=== PATIENT | female | born 1980 | race Caucasian/White ===

== ENCOUNTER 2016-08-04 21:30 | Emergency (ER) | payer OTHER ==
[~2016-08-04 21:30] MED LIST: ATIVAN PO; B-12 PO; CELEXA20 MG PO; FLEXERIL PO; FLEXERIL10 MG PO; IBUPROFEN PO; IBUPROFEN800 MG PO; MOTRIN600 M2 PO; NO MEDICATIONS; ORTHO TRI-7 DAYS X PO; TYLENOL #3 PO
[2016-08-05 00:59] LABS: BASOPHIL% 0.4 % (0-2.5); EOSINOPHIL# 0.1 X10e3 (0-0.7); EOSINOPHIL% 1.1 % (0.0-7.0); HEMOGLOBIN 12.5 gm/dL (12.0-16.0); LYMPHOCYTE# 2.2 X10e3 (1.0-3.5); LYMPHOCYTE% 30.1 % (17.0-45.0); MEAN CELL VOLUME 79.8 FL (83-96); MEAN CORPUSCULAR HEMOGLOBIN 25.7 PG (28-34); MEAN CORPUSCULAR HGB CONC 32.1 g/dL (30-36); MEAN PLATELET VOLUME 9.6 FL (6.5-11.5); MONOCYTE# 0.5 X10e3 (0-1.0); MONOCYTE% 6.6 % (3.0-12.0); NEUTROPHIL# 4.5 X10e3 (1.5-7.1); NEUTROPHIL% 61.8 % (40-75); PLATELET COUNT 255 X10e3 (140-420); RED BLOOD COUNT 4.89 X10e (3.90-5.30); RED CELL DISTRIBUTION WIDTH 16.3 % (11.0-15.5); WHITE BLOOD COUNT 7.3 X10e3 (4.0-10.5)
[2016-08-05 01:02] LABS: DIFF IND NO
[2016-08-05 01:21] LABS: BILIRUBIN,TOTAL 0.4 mg/dL (0.2-2.0); CALCIUM SERUM 8.9 mg/dL (8.4-10.2); GLOM FILT RATE Estimated 72.5 mL/min (>60); POTASSIUM 4.1 mmol/L (3.5-5.1); PROTEIN TOTAL SERUM 7.1 g/dL (6.0-8.3)
[2016-08-05 01:23] LABS: BILIRUBIN, DIRECT 0.1 mg/dL (0.0-0.2); BILIRUBIN,INDIRECT 0.3 mg/dL (0.0-0.9)
[2016-08-05 01:51] LABS: URINE SOURCE CLEAN CATCH
[2016-08-05 02:02] LABS: URINE APPEARANCE CLEAR; URINE BILIRUBIN NEG (NEG); URINE BLOOD 3+ (NEG); URINE COLOR YELLOW; URINE GLUCOSE NEG (NEG); URINE KETONE TRACE (NEG); URINE LEUKOCYTE ESTERASE 1+ (NEG); URINE NITRATE NEG (NEG); URINE PH 5.5 (5-8); URINE PROTEIN 1+ (NEG); URINE SPECIFIC GRAVITY 1.033 (1.003-1.035)
[2016-08-05 02:04] LABS: URBCS1 AUWI INNUM /[HPF] (0-2); URINE BACTERIA AUWI NEG (NEGATIVE); URINE SQUAMOUS EPITHELIAL CELL NONE SEEN /[HPF]; UWBCS1 AUWI 0-2 (0-5)
[2016-08-05 02:05] LABS: CULTURE INDICATED? NO
[2016-08-08 12:43] LABS: CHLAMYDIA TRACH Not Detected (Not Detected); N GONOR Not Detected (Not Detected)
== END 2016-08-05 02:30 | disposition home or self-care (01) ==
LOC: CED 21:30
PROVIDERS: Student in an Organized Health Care Education/Training Program
DX: R10.2 Pelvic and perineal pain (principal); N93.9 Abnormal uterine and vaginal bleeding, unspecified; R82.99 Other abnormal findings in urine
CPT/HCPCS: 36415; 51701; 80048; 80076; 81003; 82150; 83690; 84703; 85025; 87491; 87591; 87808; 87905; 99284